=== PATIENT | male | born 1950 | race Caucasian/White ===

== ENCOUNTER → 2018-11-19 | Outpatient (CLI) | payer OTHER ==
[~2018-11-19] MED LIST: ALDACTONE25 MG PO; ALTACE10 M1 PO; ASPIRIN EC325 M1 PO; AUGMENTIN 875875 MG PO; CARVEDILOL25 MG PO; COMBIVENT RESPIM4 GM INH; CRESTOR20 MG PO; CRESTOR40 MG PO; DUONEB 2.5-0.5 M3 ML INH; ESTER-C 1,0001 EACH PO; ESTER-C 500 MG1 EAC1 PO; HYDROCODON-ACE1 EAC7 PO; LEVAQUIN 500 M500 M2 PO; MEDROLDOSEPACK PO; MOBIC15 MG PO; MUCINEX600 MG PO; MULTI VITAMIN1 EACH PO; NICOTINE TRANSD21 M1 TRANSDERM; PACERONE 200 M200 M1 PO; PREDNISONE 10 M10 MG PO; TRICOR145 MG PO
--- NOTE | 2018-11-26 15:57 | PFR/MVV ---
[facility] [place] [address] PULMONARY FUNCTION MVV/REPORT Name: PANCHITO JUSTIN [id number] Admission: 11/19/18 Attend Phys: Jay Bergeron MD Discharge: Date of : 50 Report #: [id number] THIS REPORT FOR: //name// >> SPIROMETRY: (BTPS) Height: 72 in cm Weight: 300 lbs kg Exam Date: 11/19/18 PRE-RX POST-RX PRED BEST %PRED BEST %PRED %CHG FVC LITERS . 4.67 . 3.13 . 67 . 3.15 . 68 . 1 FEV1 LITERS . 3.70 . 2.09 . 56 . 2.11 . 57 . 1 FEV1/FVC % . 78 . 67 . 85 . 67 . 85 . 0 KFS82-09% L/Sec . 3.65 . 1.14 . 31 . 1.16 . 32 . 2 PEF L/SEC . 8.85 . 4.05 . 46 . 3.73 . 42 . -8 FEF50/FIF50 UNITLESS . <1.00 . 0.87 . . 1.61 . . 85 MVV L/Min . 138 . 71 . 51 f 1/Min . . 85 . >> LUNG VOLUMES: (BTPS) PRE-RX POST-RX PRED AVG %PRED AVG %PRED %CHG VC Liters . 4.67 . 4.09 . 88 . . . TLC Liters . 7.03 . 5.49 . 78 . . . RV Liters . 2.63 . 1.40 . 53 . . . RV/TLC % . 40 . 25 . 64 . . . FRC [address] Liters . 3.18 . 1.97 . 62 . . . FRC N2 Liters . 3.18 . . . . . ERV Liters . . .057 . . . . IC Liters . . 3.67 . . . . >> DIFFUSION: DLCO ml/Min/mmHg . 30.1 . 7.6 . 25 . . . DL Preeti ml/Min/mmHg . 30.1 . 7.6 . 25 . . . DLCO/VA ml/Min/mmHg . 3.57 . 2.50 . 70 . . . VA Liters . . 3.03 . . . . COMMENTS: COMMENTS: >> RESISTANCE: [facility] [address] [place] [address] PULMONARY FUNCTION MVV/REPORT Name: PANCHITO JUSTIN Room #: REG [facility]#: [id number] Admission: 11/19/18 Attend Phys: Jay Bergeron MD Discharge: Date of : 50 Report #: [id number] PRE-RX PRED AVG %PRED Raw Total cmH20/L/Sec . . 5.92 . Raw Insp cmH20/L/Sec . . 5.00 . Raw Exp cmH20/L/Sec . . 7.82 . Raw cmH20/L/Sec . 1.45 . 2.92 . 201 Gaw L/Sec/cmH20 . 0.764 . 0.343 . 45 sRaw cmH20 Sec . 4.63 . 12.84 . 277 sGaw l/cmH20 Sec . 0.216 . 0.078 . 36 Vtq Liters . . 4.40 . # = OUTSIDE 95% CONFIDENCE INTERVAL CALIBRATION: PRED: 3.00 ACTUAL: EXP 3.01 INSP 3.02 [facility] [place] [address] N-[id number] >> INTERPRETATION/IMPRESSION: CC: Jay Bergeron DATE OF SERVICE: 11/19/2018 PULMONARY FUNCTION STUDIES FINDINGS: FEV1 is 2.09 liters (56%), FVC is 3.13 liters (67%), FEV1/FVC ratio 67%, post-bronchodilator therapy with no significant response. Total lung capacity is 5.49 liters (78%). Diffusing capacity is 25%. IMPRESSION: Pulmonary function studies are consistent with a mixed obstructive and restrictive air flow defect. There is a ipiczjue-cm-kznfkt obstructive component, with no significant response to bronchodilator therapy. Lung volumes are slightly reduced. Diffusing capacity is severely decreased. <ELECTRONICALLY SIGNED> By: Salvador Talbot MD 11/26/18 1557 Salvador Talbot MD /nt
== END ==
LOC: PUL 07:57
DX: R06.00 Dyspnea, unspecified (principal)

== ENCOUNTER → 2018-12-18 | Outpatient (CLI) | payer OTHER ==
[2018-12-18 11:01] LABS: CREATININE 1.2 mg/dL (0.7-1.3)
== END ==
LOC: CAT 10:18
PROVIDERS: Nurse Practitioner
DX: K76.0 Fatty (change of) liver, not elsewhere classified (principal); K42.9 Umbilical hernia without obstruction or gangrene; K80.80 Other cholelithiasis without obstruction; I70.0 Atherosclerosis of aorta; R60.0 Localized edema; R19.5 Other fecal abnormalities

== ENCOUNTER → 2018-12-21 | Outpatient (CLI) | payer OTHER | LOC: ULTRA 11:00 | DX: K80.20 Calculus of gallbladder without cholecystitis without obstruction (principal); K85.90 Acute pancreatitis without necrosis or infection, unspecified; R16.0 Hepatomegaly, not elsewhere classified; E80.7 Disorder of bilirubin metabolism, unspecified ==

== ENCOUNTER 2019-05-12 05:34 | Day surgery (SDC) | payer OTHER ==
[~2019-05-12] VITALS: Ht 177.8 cm; Wt 136.5 kg
[~2019-05-12 05:34] MED LIST changes: +AMARYL4 MG PO; +ASPIR 8181 MG PO; +GLUCOPHAGE XR500 MG PO; +LASIX 40 MG TAB40 M2 PO; +LIPITOR40 MG PO; +VENTOLIN HFA 1818 GM INH; +XARELTO20 MG PO
[2019-05-12 06:39] VITALS: BP 153/68
[2019-05-12 06:41] LABS: HEMATOCRIT 37.5 % (42.0-52.0); HEMOGLOBIN 12.4 gm/dL (14.0-18.0)
[2019-05-12 07:07] LABS: CALCIUM 9.1 mg/dL (8.5-10.1); POTASSIUM 3.7 mmol/L (3.5-5.1)
[2019-05-12] MEDS ORDERED: NORCO 5-325 TA1 EAC1 PO (10:16)
[2019-05-12] MEDS ORDERED: SENNA-S TABLET1 EACH PO (10:16)
[2019-05-12 10:57] VITALS: BP 153/68
--- NOTE | 2019-05-14 00:22 | O ---
[address] [address] OPERATIVE REPORT Name: NHANPANCHITO Brady Room #: [facility]#: [id number] Admission: 05/12/19 ������������������ Attend Phys: Gabe Mckeon MD, F Discharge: 05/12/19 ������������������ Date of : 50 Report #: [id number] THIS REPORT FOR: //name// CC: Jay Mckeon DATE OF SERVICE: 05/12/2019 SURGEON: Gabe Mckeon MD SILO PAINTER: Gladys Roberts. PREOPERATIVE DIAGNOSES: 1. Symptomatic cholelithiasis. 2. Chronic atrial fibrillation. 3. Congestive heart failure. 4. Coronary artery disease. 5. Hypertension. 6. Type 2 diabetes mellitus. 7. Morbid obesity (BMI of 43). POSTOPERATIVE DIAGNOSES: 1. Symptomatic cholelithiasis. 2. Incarcerated umbilical hernia. 3. Fatty liver. 4. Chronic atrial fibrillation. 5. Congestive heart failure. 6. Coronary artery disease. 7. Hypertension. 8. Type 2 diabetes mellitus. 9. Morbid obesity (BMI of 43). PROCEDURE: 1. Laparoscopic cholecystectomy with intraoperative cholangiogram. 2. Laparoscopic primary repair of incarcerated umbilical hernia (separate procedure). ANESTHESIA: General endotracheal anesthesia and local anesthetic. ESTIMATED BLOOD LOSS: 5 mL. SPECIMENS: 1. Gallbladder. 2. Incarcerated hernia content. COMPLICATIONS: None appreciated. [address] [address] OPERATIVE REPORT Name: PANCHITO JUSTIN Room #: DEP [facility]#: [id number] Admission: 05/12/19 ������������������ Attend Phys: Gabe Mckeon MD, F Discharge: 05/12/19 ������������������ Date of : 50 Report #: [id number] INDICATIONS FOR PROCEDURE: This is a morbidly obese 68-year-old male, patient of Dr. Jay Bergeron/Chinedu Ibarra, who has had difficulty with postprandial abdominal pain and bloating that developed in late November of this year. The patient denies nausea, vomiting, fever or chills. CT of the abdomen and pelvis showed lower pancreatic head edema suggestive of pancreatitis as well as a fatty liver and a calcified gallstone in the gallbladder fundus. The patient presents now for laparoscopic cholecystectomy with cholangiogram. OPERATIVE FINDINGS: Upon entrance into the abdominal cavity, the liver was enlarged. There were chronic inflammatory changes associated with the gallbladder with omental adhesions to the gallbladder. There were no acute inflammatory changes present. The critical view consisting of the cystic artery, cystic duct and lower edge of the gallbladder forming a window through which the liver was visible was seen prior to clipping the cystic duct for cholangiogram. Cholangiogram showed no filling defects with free flow of contrast into the duodenal sweep and opacification of the biliary radicals. There was no significant ductal dilatation. After removal of the gallbladder, 3 clips remained on the cystic duct stump. The cystic duct itself was chronically inflamed with thickening of the ductal wall. Placement of PDS Endoloop was necessary. While removing the gallbladder from the abdominal cavity, omental adhesions to the anterior abdominal wall were present. These appeared to extend up into an umbilical hernia defect. There was no bowel involvement. The incarcerated content was able to be removed. Upon opening the gallbladder on the back table, several pigmented gallstones were present within the gallbladder. No other gross pathology was appreciated. The liver bed was hemostatic and the Hemoclips were secure upon return to the abdominal cavity. No other significant intra-abdominal pathology was seen. At the conclusion of the operation, sponge, needle, and instrument counts were correct. DESCRIPTION OF PROCEDURE IN DETAIL: After the risks, benefits and expectations of the operation were discussed in detail with the patient, informed consent was obtained. The patient was identified in the preoperative holding area. He was given IV antibiotics as documented in the chart [facility]. The patient was then taken to the operating room and he was placed in the supine position. SCDs were placed on the patient's bilateral lower extremities and pneumatic compression was initiated. The patient was then given IV sedation and he was intubated without incident. His abdomen was prepped and draped in the standard sterile fashion. A timeout was performed to identify the correct patient and procedure. Local anesthetic was infiltrated into the skin and subcutaneous tissue supraumbilically where a curvilinear incision was made with #15 blade scalpel. Dissection was carried down to the fascia. An 11 mm visual entry port was then placed intraperitoneally with a 0-degree angled laparoscope. Pneumoperitoneum was achieved with insufflation of carbon dioxide to 15 mmHg. A 30-degree angled [address] [address] OPERATIVE REPORT Name: PANCHITO JUSTIN Room #: DEP [facility] Sudarshan#: [id number] Admission: 05/12/19 ������������������ Attend Phys: Gabe Mckeon MD, F Discharge: 05/12/19 ������������������ Date of : 50 Report #: [id number] laparoscope was then inserted. The patient was placed in the reverse Trendelenburg position, rotated to his left. A subxiphoid 5 mm and right subcostal 5 mm ports x 2 were placed under direct visualization after local anesthetic was infiltrated into the skin and subcutaneous tissue and appropriately sized incisions were made. Operative findings are as noted above. The omental adhesions to the gallbladder and liver were carefully taken down with blunt dissection and judicious use of the ultrasonic dissector. The dome of the gallbladder was ultimately able to be grasped and the gallbladder was retracted in the cephalad and lateral direction. The gallbladder peritoneum was scored medially and laterally with the ultrasonic dissector. Dissection was then carried out around the cystic artery and cystic duct to identify both structures as the only two structures entering the gallbladder. The critical view of safety as described above was seen. A clip was placed on the cystic duct at its junction with the neck of the gallbladder. A ductotomy was created. A cholangiocatheter was then inserted and a cholangiogram was performed with findings as noted above. The cholangiocatheter was then removed. The cystic duct was triply clipped and divided with the ultrasonic dissector with a good seal. The clips did not fully traverse the cystic duct and a decision was made to place an 0 PDS Endoloop. After doing so, the cystic artery was divided with the ultrasonic dissector with good hemostasis. The gallbladder was dissected out of the liver bed and fully detached from the liver, then placed in an Endopouch and removed through the supraumbilical port site. While doing so, omental adhesions were seen extending up to the anterior abdominal wall. The adhesions were dissected off the abdominal wall and the incarcerated omental fat was transected after ensuring there was no bowel involvement. The incarcerated omental fat was then reduced from the defect and removed from the abdominal cavity to be sent for specimen. A [id number]-[id number] 0 PDS suture was placed to close the fascial defect. The suture was tied under direct visualization. An 0 PDS suture was also placed to approximate the port site fascial opening. The suture was tagged and the port was replaced. The abdominal cavity was reentered. Hemostasis within the liver bed was ensured and the Hemoclips and Endoloop were secure. No other significant intra-abdominal pathology was seen. The port site fascial suture was tied under direct visualization to ensure no incorporation of intra-abdominal content. The abdominal cavity was then desufflated and the ports were removed. Interrupted subcuticular 4-0 Monocryl sutures and Dermabond were used to close the skin incisions. The patient tolerated the procedure well. He was awakened, extubated, and taken to the recovery room in stable condition with no apparent intraoperative complications. ��������������������������������������������� <ELECTRONICALLY SIGNED> ���������������������������������������� By: Gabe Mckeon MD, FACS ��������������������������������������������� 05/14/19 0022 [id number] Gabe Mckeon MD, FACS /nt
--- NOTE | 2019-05-14 12:05 | PATH ---
[facility] [address] [address] PATHOLOGY RPT PROCEDURE Name: RUSLAN JUSTIN Room #: DEP [facility] M.R.#: [id number] ������������������ Admission: 05/12/19 ������������������ Date of : 50 Discharge: 05/12/19 Report #: [id number] Path Case #: [id number] [facility] Accession Number: [id number] . 01 Material submitted: . PART A: gallbladder - GALLBLADDER PART B: hernia - INCARCERATED HERNIA CONTENTS . 01 Clinical history: . Gallbladder disease Umbilical hernia . 02 Diagnosis: A. Gallbladder, cholecystectomy: - Mild chronic cholecystitis. - Cholelithiasis. . B. Hernia contents, incarcerated hernia contents, repair: - Fibroadipose tissue with congestion and reactive changes. - Fibrovascular connective tissue with mild chronic inflammation. (IUV:bandar; 05/13/2019) QMS/05/13/2019 . 02 Electronically signed: . Kinjal U Vadlamani, MD, Pathologist NPI- [id number] . 01 Gross description: . A. The specimen is received in formalin labeled "Ruslan Justin, gallbladder" and consists of a previously opened, pink-bundy gallbladder measuring 6.1 cm in length and up to 2.9 cm in diameter. The margin is inked black. The mucosa is bundy-brown and granular with an average wall thickness of 0.1 cm. Multiple black gravel-like calculi are present measuring between 0.1-0.3 cm. No masses are identified. File Keeper sections are submitted in A1. . B. The specimen is received in formalin, labeled "Ruslan Justin, incarcerated hernia contents" and consists of a segment of pink membranous tissue measuring 4.3 x 1.8 x 0.5 cm and a second segment of disrupted yellow lobulated tissue measuring 6.5 x 4.5 x 1.5 cm. No masses or lesions are identified. And sales representative womens health sections are submitted in B1. (SDY; 05/12/2019) SYU/SYU . 02 Pathologist provided ICD-10: K80.10, K42.9 . [address] [place] [address] PATHOLOGY RPT PROCEDURE Name: RUSLAN JUSTIN Jose Antonio Room #: DEP [facility] M.R.#: [id number] ������������������ Admission: 05/12/19 ������������������ Date of : 50 Discharge: 05/12/19 Report #: [id number] Path Case #: [id number] [facility] . [id number], [id number] Specimen Comment: A courtesy copy of this report has been sent to Specimen Comment: [phone], . Specimen Comment: Report sent to / DR THOMAS Performed at: [address], [place], [place] [id number] MD Andrea Le MD Phone: [phone] Performed at: [address] [id number] MD Kinjal Watts MD Phone: [phone]
== END 2019-05-12 12:30 | disposition home or self-care (01) ==
LOC: OR 05:34 → TBA 05:34 → OR 12:30
PROVIDERS: Surgery
DX: K80.10 Calculus of gallbladder with chronic cholecystitis without obstruction (principal); K42.0 Umbilical hernia with obstruction, without gangrene; I11.0 Hypertensive heart disease with heart failure; I50.9 Heart failure, unspecified; I25.10 Atherosclerotic heart disease of native coronary artery without angina pectoris; E11.9 Type 2 diabetes mellitus without complications; E66.01 Morbid (severe) obesity due to excess calories; I48.2 Chronic atrial fibrillation; J43.9 Emphysema, unspecified; G47.30 Sleep apnea, unspecified; F17.210 Nicotine dependence, cigarettes, uncomplicated; E78.5 Hyperlipidemia, unspecified; I25.2 Old myocardial infarction; Z98.890 Other specified postprocedural states; Z79.899 Other long term (current) drug therapy; Z79.01 Long term (current) use of anticoagulants; Z68.41 Body mass index [BMI] 40.0-44.9, adult
CPT/HCPCS: 50010; 50101; 50249; 50411; 50555; 50558; 50962; 51297; 51975; 52265; 53307; 54022; 54118; 55245; 55317; 56462; 56524; 56525; 56526; 62110; 62900; 70005

== ENCOUNTER → 2021-06-19 | Outpatient (CLI) | payer OTHER ==
[~2021-06-19] MED LIST changes: +NORCO 5-325 TA1 EAC1 PO; +SENNA-S TABLET1 EACH PO
--- NOTE | 2021-06-27 18:31 | SLE ---
[facility] [place] [address] POLYSOMNOGRAPHY STUDY Name: PANCHITO JUSTIN Room #: REG [facility].#: [id number] Admission: 06/19/21 Attend Phys: Salvador Talbot MD Discharge: Date of : 50 Report #: [id number] THIS REPORT FOR: cc: Jay Bergeron MD, Neal A. MD Khan, Aman U. MD ~ cc: Salvador Talbot MD DATE OF SERVICE: 06/19/2021 ATTENDING PHYSICIAN: Salvador Talbot M.D. The patient is 70 years old who weighs 308 pounds with a BMI of 44.2. The patient has a history of congestive heart failure and COPD. The patient was referred for BiPAP titration study. Patient has a history of severe severe MONIQUE, could not achieve therapeutic CPAP in the past . During the night study, the patient spent 493 minutes in bed and slept for 239 minutes with a low sleep efficiency of 48%. Sleep latency was 5.7 minutes with an absent REM sleep. Overall, sleep architecture showed increased stage I sleep, reduced stage II sleep, significantly reduced N3 sleep and absent REM sleep. EKG monitoring revealed an average heart rate of 58 beats per minute. PVCs were seen throughout with some bigeminy.Irregular and c/w A-fib. No significant PLMs seen. The patient was started on BiPAP at a pressure of 8/4. BiPAP pressure was increased all the way to 13/7. The patient had central apneas in addition to obstructive apneas and hypopneas. Backup rate was added starting at [address] up to 18. At the final BiPAP pressure of 13/7 with a rate of 18, the patient slept for 182 minutes. During that time, the patient had 28 central apneas, 20 obstructive apneas and 8 hypopneas. The patient's AHI at this pressure was 48 per hour. Oxygen saturation remained above 90%. At lower pressures, the patient did not have significant central apneas; however, there were obstructive apneas as well as few hypopneas. Optimal BiPAP pressure was not achieved. I would recommend that the patient should be placed on auto BiPAP. IMPRESSION: 1. Sleep apnea diagnosed by previous sleep study. (Severe by previous sleep study) 2. No clinically significant PLMs. 3. Abnormal EKG as discussed above. [facility] [address] [place] [address] POLYSOMNOGRAPHY STUDY Name: PANCHITO JUSTIN Room #: REG CLI [facility]#: [id number] Admission: 06/19/21 Attend Phys: Salvador Talbot MD Discharge: Date of : 50 Report #: [id number] RECOMMENDATIONS: 1. Optimal BiPAP pressure was not achieved on the night of the study. I would recommend the patient should be placed on an auto BiPAP at a maximum IPAP pressure of 20 and a minimum EPAP pressure of 12 with pressure support of 4 and a backup rate of 18. Increase central apneas were likely treatment emergent centrals. 2. I would recommend a followup and download data in 4-6 weeks to assess for AHI and make further recommendations. 3. Weight loss is strongly advised. 4. Avoid HOOP MACHINE OPERATOR depressants. 5. Cautioned regarding driving until symptoms of sleep apnea resolve with the use of BiPAP. <ELECTRONICALLY SIGNED> By: Sami Mcgraw MD 06/27/21 1831 [id number] Sami Mcgraw MD /nt
== END ==
LOC: SLEEPLAB 18:47
PROVIDERS: ATTEND Pediatrics
DX: G47.30 Sleep apnea, unspecified (principal); Z78.9 Other specified health status